=== PATIENT | male | born 1955 | race African-American/Black ===

== ENCOUNTER 2016-10-13 14:04 | Emergency (ER) | payer SELFPAY ==
[~2016-10-13] VITALS: Ht 188 cm; Wt 118.0 kg
[2016-10-13] MEDS ORDERED: ONDANSETRON HCL 4MG/2ML VIAL IV STA (14:49)
[2016-10-13] MEDS ORDERED: MORPHINE SULFATE 4 MG/ML CPJ (NOT FOR IM USE) IV STA (14:49)
[2016-10-13] MEDS ORDERED: SODIUM CHLORIDE 0.9% 1,000 ML IV ONE (14:49)
[2016-10-13 15:20] LABS: BASOPHILS % 0.9 % (0.0-2.0); EOSINOPHILS % 1.4 % (0.0-5.0); HEMATOCRIT. 46.5 % (42.0-52.0); HEMOGLOBIN. 15.8 g/dL (14.0-18.0); LYMPHOCYTES % 26.4 % (20.0-50.0); MEAN CORPUSCULAR HEMOGLOBIN 28.3 pg (28.0-32.0); MEAN CORPUSCULAR VOLUME 83.1 fL (80.0-94.0); MEAN PLATELET VOLUME 8.2 fl (7.4-10.4); MONOCYTES % 9.3 % (2.0-8.0); PLATELET 289 x1000/uL (130-400); RED BLOOD CELL COUNT 5.59 mill/uL (4.7-6.1); RED CELL DISTRIBUTION WIDTH 13.5 % (11.6-14.6)
[2016-10-13 15:26] LABS: CHLORIDE 100 mEq/L (98-107)
[2016-10-13 15:27] LABS: PROTHROMBIN TIME 10.7 sec
[2016-10-13 15:33] LABS: GLUCOSE URINE 3+ (NEGATIVE); KETONES URINE 2+ (NEGATIVE); LEUKOCYTE ESTERASE URINE 2+ (NEGATIVE); NITRITE URINE POSITIVE (NEGATIVE); OCCULT BLOOD URINE 3+ (NEGATIVE); PH URINE 5.5 (4.5-8.0); PROTEIN URINE 3+ (NEGATIVE); SPECIFIC GRAVITY URINE 1.028 (1.005-1.030)
[2016-10-13 15:35] LABS: CLARITY URINE TURBID (CLEAR); COLOR URINE BLOODY (YELLOW)
[2016-10-13 15:36] LABS: CARBON DIOXIDE 26 mEq/L (21-32)
[2016-10-13] MEDS ORDERED: LEVOFLOXACIN 750MG PREMIX 150 ML IV ONE (17:45)
[2016-10-13 21:04] VITALS: BP 142/62
== END 2016-10-13 21:06 | disposition home or self-care (01) ==
LOC: ER 14:21
DX: N39.0 Urinary tract infection, site not specified (principal); I10 Essential (primary) hypertension
CPT/HCPCS: 36415; 80053; 81001; 83605; 85025; 85610; 87040; 87086; 93005; 96361; 96365; 96366; 99285; J1956; Z7610; J7030

== ENCOUNTER 2019-04-25 04:43 | Emergency (ER) | payer SELFPAY ==
[~2019-04-25] VITALS: Ht 188 cm; Wt 93.7 kg
[2019-04-25] MEDS ORDERED: KETOROLAC 60MG/2ML VIAL IM STA (07:47)
[2019-04-25] MEDS ORDERED: CYCLOBENZAPRINE 10MG TABLET PO ONE (08:00)
[2019-04-25 08:24] LABS: BASOPHILS % 0.7 % (0.0-2.0); EOSINOPHILS % 1.9 % (0.0-5.0); HEMATOCRIT. 42.7 % (42.0-52.0); HEMOGLOBIN. 14.3 g/dL (14.0-18.0); LYMPHOCYTES % 24.6 % (20.0-50.0); MEAN CORPUSCULAR HEMOGLOBIN 28.2 pg (28.0-32.0); MEAN CORPUSCULAR VOLUME 84.3 fL (80.0-94.0); MEAN PLATELET VOLUME 7.3 fl (7.4-10.4); NEUTROPHILS % 65.8 % (40.0-76.0); PLATELET 341 x1000/uL (130-400); RED BLOOD CELL COUNT 5.06 mill/uL (4.7-6.1); RED CELL DISTRIBUTION WIDTH 13.4 % (11.6-14.6)
[2019-04-25 08:32] LABS: CHLORIDE 100 mEq/L (98-107)
[2019-04-25 10:05] LABS: CLARITY URINE CLEAR (CLEAR); COLOR URINE YELLOW (YELLOW); KETONES URINE NEGATIVE (NEGATIVE); LEUKOCYTE ESTERASE URINE NEGATIVE (NEGATIVE); NITRITE URINE NEGATIVE (NEGATIVE); OCCULT BLOOD URINE NEGATIVE (NEGATIVE); PH URINE 6.5 (4.5-8.0); PROTEIN URINE TRACE (NEGATIVE); SPECIFIC GRAVITY URINE 1.016 (1.005-1.030)
[2019-04-25] MEDS ORDERED: MORPHINE SULFATE 4 MG/ML CPJ (NOT FOR IM USE) IV ONE (11:45)
[2019-04-25] MEDS ORDERED: AMLODIPINE 5MG TABLET PO ONE (11:45)
[2019-04-25 13:01] VITALS: BP 176/98
== END 2019-04-25 13:03 | disposition home or self-care (01) ==
LOC: ER 04:43
DX: M54.5 Low back pain (principal); I16.0 Hypertensive urgency
CPT/HCPCS: 36415; 80053; 81003; 85025; 96372; 96374; 99283; J1885; J2270